=== PATIENT | female | born 1960 | race Caucasian/White ===

== ENCOUNTER 2016-09-19 16:07 | Emergency (ER) | payer MEDICARE ==
[~2016-09-19] VITALS: Ht 167.6 cm; Wt 88.5 kg
--- NOTE | ~2016-09-19 | CR127 ---
[facility] A Service of [facility] RADIOLOGY TEXT RESULTS PATIENT: MEGHAN GERMAIN LOCATION: [facility] : 60 UNIT #: [id number] AGE: [address]: Tylor Yo MD SEX: F ORDER DR: [id number] [facility] [address] [place], [place] [address] [id number] E MR#: [id number] Acc #: [id number] NAME: MEGHAN GERMAIN : 1960 SEX: F STUDY DATE/TIME: 09/19/2016 20:21 UNIT: [facility] ROOM: STUDY DESCRIPTION: CR Foot Complete Min 3 View Rt Attending Physician: Tylor Yo M.D. Referring Physician: No Primary Care Physician Ordering Physician: Tylor Yo M.D. Primary Care Physician: No Primary Care Physician MEDICAL IMAGING REPORT This report is preliminary unless electronic signature is present EXAM Right foot 09/19/2016 HISTORY 56-year-old female with right foot pain and swelling after hitting foot on bed today. COMPARISON None. FINDINGS 3 views of the right foot demonstrate no acute fracture or dislocation. Soft tissues are unremarkable. No joint effusion. IMPRESSION Unremarkable right foot Dictated by... Herberth Snyder M.D. THIS IS AN ELECTRONICALLY VERIFIED REPORT Herberth Snyder M.D. at 09/20/2016 10:05 AM ALVARADO/marian TD: 09/20/2016 04:57 JOB #: [id number] MEDICAL IMAGING REPORT Page 1 of 1 COPY
[2016-09-19 16:57] LABS: URINE SOURCE CLEAN CATCH
[2016-09-19 17:08] LABS: URINE APPEARANCE CLEAR; URINE BILIRUBIN NEG (NEG); URINE BLOOD 1+ (NEG); URINE COLOR DK YELLOW; URINE GLUCOSE NEG (NEG); URINE KETONE TRACE (NEG); URINE LEUKOCYTE ESTERASE 1+ (NEG); URINE NITRATE POS (NEG); URINE PROTEIN TRACE (NEG); URINE SPECIFIC GRAVITY 1.028 (1.003-1.035)
[2016-09-19 17:11] LABS: CULTURE INDICATED? YES; URINE BACTERIA AUWI 4+ (NEGATIVE); URINE SQUAMOUS EPITHELIAL CELL FEW /[HPF]
== END 2016-09-19 22:05 | disposition home or self-care (01) ==
LOC: CED 16:07
DX: S90.31XA Contusion of right foot, initial encounter (principal); N39.0 Urinary tract infection, site not specified; X58.XXXA Exposure to other specified factors, initial encounter
CPT/HCPCS: 29515; 73630; 81003; 84703; 87086; 87088; 87186; 99283